=== PATIENT | male | born 1980 | race Caucasian/White ===

== ENCOUNTER → 2019-10-22 08:12 | Outpatient (BNVA) | payer MEDICAID, SELFPAY | PROVIDERS: PCP Nurse Practitioner Family; Referring Provider Nurse Practitioner Family; Visit Provider Specialist | DX: R51 Headache (principal); F17.210 Nicotine dependence, cigarettes, uncomplicated | CPT/HCPCS: 99203 ==

== ENCOUNTER → 2020-09-06 14:13 | Outpatient (BNVA) | payer MEDICAID, SELFPAY | PROVIDERS: PCP Nurse Practitioner Family; Visit Provider Specialist | DX: G43.711 Chronic migraine without aura, intractable, with status migrainosus (principal); G24.8 Other dystonia; R56.9 Unspecified convulsions; F31.9 Bipolar disorder, unspecified; F17.210 Nicotine dependence, cigarettes, uncomplicated | CPT/HCPCS: 99213; 99214 ==

== ENCOUNTER → 2020-10-19 14:52 | Outpatient (BNVA) | payer MEDICAID, SELFPAY | PROVIDERS: PCP Nurse Practitioner Family; Visit Provider Specialist | DX: R56.9 Unspecified convulsions (principal); F17.210 Nicotine dependence, cigarettes, uncomplicated | CPT/HCPCS: 95816 ==

== ENCOUNTER 2024-11-24 07:40 | Emergency (ER) | payer MEDICAID, SELFPAY ==
[2024-11-24 07:51] VITALS: BP 136/92; PULSE 76; RESP 16; TEMP 36.8; O2SAT 94; BMI 33.4
--- NOTE | 2024-11-24 07:54 | XRR_ITS ---
PROCEDURE INFORMATION: Exam: XR Left Forearm Exam date and time: 11/24/2024 7:56 AM Age: 44 years old Clinical indication: Injury or trauma; Fall; Blunt trauma (contusions or hematomas); Arm, lower; Left; Additional info: Pain, fall TECHNIQUE: Imaging protocol: Radiologic exam of the left forearm. Views: 2 views. COMPARISON: No relevant prior studies available. FINDINGS: Bones/joints: Normal. Soft tissues: Normal. XR/XR forearm LT 2V [id number] IMPRESSION: No acute findings.
--- NOTE | 2024-11-24 07:54 | XRR_ITS ---
PROCEDURE INFORMATION: Exam: XR Left Wrist Exam date and time: 11/24/2024 7:59 AM Age: 44 years old Clinical indication: Injury or trauma; Fall; Blunt trauma (contusions or hematomas); Wrist; Left; Additional info: Pain, fall TECHNIQUE: Imaging protocol: Radiologic exam of the left wrist. Views: 1 or 2 views. COMPARISON: CR XR forearm LT 2V [id number] 11/24/2024 7:56 AM FINDINGS: Bones/joints: No acute fracture or dislocation is noted. There is slight ulnar negative variance. Bony mineralization is normal. Soft tissues: Normal. XR/XR wrist LT 2V [id number] IMPRESSION: 1. No definite fracture identified.
--- NOTE | 2024-11-24 08:17 | W.ED.EXTPRO ---
HPI - Extremity Problem General: Chief complaint: Extremity Injury, Upper Stated complaint: Left arm injury Time Seen by Provider: 11/24/24 07:50 History of Present Illness: 44-year-old male presents emergency room with left arm pain. He was on a ladder he fell off a ladder got his arm caught between 2 rungs. He did not have any other injuries he complains of pain in his left thumb and his left wrist and forearm. He is able to use the hand without any difficulty no pain in the shoulder. Did not strike his head no neck discomfort Associated symptoms: Deny chest pain, fever(s) or rash Related Data Home Medications ?Medication ?Instructions ?Recorded ?Confirmed pantoprazole 40 mg tablet,delayed 40 mg PO DAILY 10/22/19 10/19/20 release aripiprazole 15 mg tablet (Abilify) 30 mg PO QDAY 10/19/20 Previous Rx's ?Medication ?Instructions ?Recorded sumatriptan succinate 100 mg tablet 100 mg PO Q2H PRN migraine 10/22/19 headache #9 tabs bupropion HCl 300 mg 24 hr tablet, 300 mg PO QAM #30 tabs 02/10/20 extended release (Wellbutrin XL) venlafaxine 150 mg 150 mg PO DAILY #30 caps 09/06/20 capsule,extended release 24 hr (Effexor XR) venlafaxine 75 mg capsule,extended 75 mg PO DAILY #7 caps 09/06/20 release 24 hr (Effexor XR) diclofenac sodium 75 mg 75 mg PO Q12H PRN pain #20 tabs 11/24/24 tablet,delayed release Allergies Allergy/AdvReac Type Severity Reaction Status Date / Time alprazolam (From Xanax) Allergy Unknown Verified 10/19/20 15:01 Review of Systems Const: Denies: fever(s) or chills Card: Denies: chest pain Resp: Denies: dyspnea GI: Denies: abdominal pain : Denies: dysuria, urinary frequency or urinary urgency Musc: Denies: neck pain or back pain Skin/Breast: Denies: rash PFSH ED PFSH: Medical History On high dose antipsychotic drug therapy Cannabis dependence, uncomplicated Other stimulant dependence, in remission Bipolar disorder, current episode hypomanic Nicotine dependence, cigarettes, uncomplicated Social History Smoking and tobacco/nicotine status: current every day tobacco/nicotine user cigarettes Packs smoked per day: 1 Physical Exam Const: COMMON NORMALS: no acute distress GENERAL APPEARANCE: cooperative and comfortable ORIENTATION/CONSCIOUSNESS: Yes awake, Yes oriented to person, Yes oriented to place and Yes oriented to time HENMT: COMMON NORMALS: normocephalic, atraumatic and hearing grossly normal bilaterally HEAD & SCALP: normocephalic and atraumatic Resp: COMMON NORMALS: normal respiratory effort, No retractions, No use of accessory muscles and clear to auscultation bilaterally AUSCULTATION: clear to auscultation bilaterally Cardio: COMMON NORMALS: regular rate, regular rhythm and No murmurs present (Cardio) RATE: regular rate RHYTHM: regular rhythm Extremity: OTHER: Examination left arm no obvious deformity some mild abrasions on the volar surface of the forearm. Range of motion of the elbow is without difficulty or crepitus. Mild wrist pain the patient reports pain with palpation and movement in the thumb neurovascularly intact. No pain at the anatomical snuffbox. Neuro: SENSORIUM/ORIENTATION: Yes oriented to person, Yes oriented to place and Yes oriented to time Skin: COMMON NORMALS: no rashes or lesions noted GENERAL SKIN EXAM: no rashes or lesions noted Course Vital Signs: Vital signs: Vital Signs Temperature 98.3 F 11/24/24 07:51 Pulse Rate 76 11/24/24 07:51 Respiratory Rate 16 11/24/24 07:51 Blood Pressure 136/92 11/24/24 07:51 Pulse Oximetry 94 11/24/24 07:51 Oxygen Delivery Me thod Room Air 11/24/24 07:51 MDM - Extremity (Nontraumatic) Medical Decision Making X-ray of the hand wrist and forearm on the left are unremarkable no bony fractures. Suspect soft tissue strain. He is already began to use the hand to hold a cup and manipulate objects without significant difficulty can follow-up with his primary care if has persistent symptoms give diclofenac to use as needed Medical Records I reviewed the patient's medical records. Lab Data I reviewed the patient's lab results. Radiology Impressions Forearm X-Ray 11/24/24 07:54 IMPRESSION: No acute findings. Wrist X-Ray 11/24/24 07:54 IMPRESSION: 1. No definite fracture identified. Hand X-Ray 11/24/24 08:35 IMPRESSION: 1. No definite fractures identified. 2. Soft tissue swelling. All radiology interpretation(s) finalized by discharge Discharge Plan Discharge Patient Disposition: Home Clinical Impression: Sprain and strain of wrist Condition: Stable Prescriptions: New diclofenac sodium 75 mg tablet,delayed release (DR/EC) 75 mg PO Q12H PRN (Reason: pain) Qty: 20 0RF Discontinued naproxen sodium 220 mg capsule 440 mg PO BID PRN No Action bupropion HCl [Wellbutrin XL] 300 mg tablet extended release 24 hr 300 mg PO QAM Qty: 30 2RF venlafaxine [Effexor XR] 75 mg capsule,extended release 24hr 75 mg PO DAILY Qty: 7 0RF Rx Instructions: Take 1 table daily for 7 days then stop. venlafaxine [Effexor XR] 150 mg capsule,extended release 24hr 150 mg PO DAILY Qty: 30 5RF Rx Instructions: Take 1 tablet daily pantoprazole 40 mg tablet,delayed release (DR/EC) 40 mg PO DAILY sumatriptan succinate 100 mg tablet 100 mg PO Q2H PRN (Reason: migraine headache) Qty: 9 3RF Rx Instructions: do not exceed 2 doses per 24 hrs aripiprazole [Abilify] 15 mg tablet 30 mg PO QDAY Discharge Orders: Discharge ED (Routine); Ordered 11/24/24 Ordered By: Charly Nieto Referrals: Sridevi Mares APRN [Primary Care Provider, Family Practice] Discharge Diet: Usual diet Discharge Activity: Increase activity as tolerated Patient Instructions: Opioid Safety, Pain Management Activity Restrictions/Additional Instructions: Thank you for choosing [facility] for your healthcare needs today. It is very important that you follow up as instructed or that you return to the Emergency Department should you have concerns or if your condition changes or worsens in any way. You were seen today after a fall. X-rays of your wrist hand and forearm did not show any acute fractures discomfort is likely from soft tissue. You can apply ice to the areas as needed use the medication prescribed 1 every 12 hours as needed if symptoms persist follow-up with your primary care doctor for further evaluations Print Language: Albanian Coding Level of Care Code ED Senior Project Coordinator for Tamar Jensen
--- NOTE | 2024-11-24 08:35 | XRR_ITS ---
PROCEDURE INFORMATION: Exam: XR Left Hand Exam date and time: 11/24/2024 8:36 AM Age: 44 years old Clinical indication: Injury or trauma; Fall; Blunt trauma (contusions or hematomas); Hand; Left TECHNIQUE: Imaging protocol: Radiologic exam of the left hand. Views: 3 or more views. COMPARISON: CR XR wrist LT 2V [id number] 11/24/2024 7:59 AM FINDINGS: Bones/joints: No acute fracture or dislocation is appreciated. There is very slight joint space narrowing with small osteophytes involving the 1st carpometacarpal joint as well as the articulation of the distal pole of the scaphoid with the trapezium. Joint spaces are otherwise relatively well preserved. There is slight ulnar negative variance. Bony mineralization is normal. Soft tissues: There is diffuse soft tissue swelling. No soft tissue air/gas is appreciated. XR/XR hand LT min 3V* [id number] IMPRESSION: 1. No definite fractures identified. 2. Soft tissue swelling.
[2024-11-24] MEDS: acetaminophen 500 mg Tablet 1000 MG PO (08:56)
[2024-11-24] MEDS: ketorolac 30 mg/mL INJ 60 MG IM (08:56)
[2024-11-24 09:01] VITALS: BP 131/82; PULSE 82; O2SAT 96
== END 2024-11-24 09:03 | disposition home or self-care (01) ==
PROVIDERS: Emergency Provider Family Medicine; PCP Nurse Practitioner Family
DX: S63.502A Unspecified sprain of left wrist, initial encounter (principal); W11.XXXA Fall on and from ladder, initial encounter; F17.210 Nicotine dependence, cigarettes, uncomplicated
CPT/HCPCS: 73090; 73100; 73130; 96372; 99284; J1885; J9999

== ENCOUNTER 2025-01-23 12:44 | Emergency (ER) | payer SELFPAY ==
--- OUTSIDE RECORDS SUMMARY | 2024-04-05 04:00 | XMS_ITS ---
Author Organization [facility] Address [address] [place] [address] Care Team Providers Care Tooling Supervisor Name Role Phone Migration, Provider Unavailable Unavailable REASON FOR VISIT EMR-Hans Encounters Encounter Location Date Provider Diagnosis Migrated_Facility 0 0 04/05/2024 Provider Migration Plan Of Treatment No Information Progress Notes * Mal CANSECOinDOB:[birth year] (44 yo M)Acc No.[id number]:04/05/2024 Patient: Anhsu MACEDO :1980 A ge:43 Y S ex:Male Address:[address] [place] [id number] Subjective: * Chief Complaints: * E MR-Hans * * Date:
--- OUTSIDE RECORDS SUMMARY | 2024-04-06 04:00 | XMS_ITS ---
Author Organization [facility] Address [address] [place] [address] Care Team Providers Care Rn Orthopaedics Name Role Phone Migration, Provider Unavailable Unavailable REASON FOR VISIT EMR-Hans Encounters Encounter Location Date Provider Diagnosis Migrated_Facility 0 0 04/06/2024 Provider Migration Plan Of Treatment No Information Progress Notes * Mal CANSECOinDOB:[birth year] (44 yo M)Acc No.[id number]:04/06/2024 Patient: Anshu MACEDO :1980 A ge:43 Y S ex:Male Address:[address] [place] [id number] Subjective: * Chief Complaints: * E MR-Hans * * Date:
--- OUTSIDE RECORDS SUMMARY | 2025-01-23 12:50 | XMS_ITS | Patient Health Record ---
Author Organization [facility] Address [address] [place] [address] Care Team Providers Care Traveling Sales Executive Name Role Phone Migration, Provider Unavailable Unavailable Reason For Referral No Information Encounters Encounter Location Date Provider Diagnosis Migrated_Facility 0 0 04/05/2024 Provider Migration Migrated_Facility 0 0 04/06/2024 Provider Migration Plan Of Treatment No Information Insurance Providers Payer Name Payer Address Payer Phone Subscriber Number Group Number Insured Name Patient Relationship to Insured Coverage Start Date Coverage End Date [place] Medicaid [address] [place] [phone] [id number] Anshu Jamison Self - patient is the insured
[2025-01-23 13:17] VITALS: PULSE 83; RESP 16; O2SAT 99
[2025-01-23 13:42] LABS: Hematocrit 57.1 % (37-53); Hemoglobin 19.00 g/dL (11.27-16.99); Mean Corpuscular HGB Conc 33.3 g/dL (30-55); Mean Corpuscular Hemoglobin 30.2 pg (27-33); Mean Corpuscular Volume 90.8 fl (82-101); Nucleated Red Blood Cells % 0 %; Platelet Count 407 10^3/cmm (157-399); Red Blood Count 6.29 10^6/uL (3.85-5.65); White Blood Count 14.28 10^3/uL (3.29-11.43)
--- NOTE | 2025-01-23 14:00 | PC.NURSE ---
upon triaging patient, he would not sit still, patient states he is in pain and is unable to sit still. BP would not take after multiple attempts due to him moving and patient declined any further BP readings. patient stormed out of triage prior to completing due to using the bathroom. when patient came back to finish triage, he would not sit still and temp would not result. patient appeared to be annoyed and increasingly loud.
--- NOTE | 2025-01-23 14:03 | W.ED.ABDPA2 ---
HPI - Abdominal Pain General: Chief Complaint: Abdominal Pain Stated Complaint: ABD PAIN Time Seen by Provider: 01/23/25 13:40 Source: patient Mode of arrival: ambulatory Limitations: no limitations History of Present Illness: 44-year-old male states he been having epigastric Salvador pain since this morning. States been a very sharp pain denies radiation has had nausea and vomiting as well rates his pain a 9 out of 10 denies any fevers denies any worse improving factors. Associated Symptoms: Reports nausea and vomiting; Denies chills, diarrhea, dysuria and fever(s) Related Data Home Medications ?Medication ?Instructions ?Recorded ?Confirmed pantoprazole 40 mg tablet,delayed 40 mg PO DAILY 10/22/19 01/23/25 release aripiprazole 15 mg tablet (Abilify) 30 mg PO QDAY 10/19/20 01/23/25 Previous Rx's ?Medication ?Instructions ?Recorded sumatriptan succinate 100 mg tablet 100 mg PO Q2H PRN migraine 10/22/19 headache #9 tabs bupropion HCl 300 mg 24 hr tablet, 300 mg PO QAM #30 tabs 02/10/20 extended release (Wellbutrin XL) venlafaxine 150 mg 150 mg PO DAILY #30 caps 09/06/20 capsule,extended release 24 hr (Effexor XR) venlafaxine 75 mg capsule,extended 75 mg PO DAILY #7 caps 09/06/20 release 24 hr (Effexor XR) diclofenac sodium 75 mg 75 mg PO Q12H PRN pain #20 tabs 11/24/24 tablet,delayed release Allergies Allergy/AdvReac Type Severity Reaction Status Date / Time alprazolam (From Xanax) Allergy Unknown Verified 10/19/20 15:01 Review of Systems Const: Denies: fever(s), chills, body aches or change in appetite ENMT: Denies: throat pain or dental pain Card: Denies: chest pain Resp: Denies: dyspnea GI: Reports: abdominal pain, nausea and vomiting; Denies: diarrhea : Denies: dysuria Musc: Denies: neck pain or back pain Skin/Breast: Denies: rash Neuro: Denies: headache(s) PFS ED PFSH: Medical History On high dose antipsychotic drug therapy Cannabis dependence, uncomplicated Other stimulant dependence, in remission Bipolar disorder, current episode hypomanic Nicotine dependence, cigarettes, uncomplicated Social History Smoking and tobacco/nicotine status: current every day tobacco/nicotine user cigarettes Packs smoked per day: 1 Physical Exam Const: COMMON NORMALS: no acute distress, patient oriented x3 and healthy appearing HENMT: COMMON NORMALS: normocephalic and atraumatic HEAD & SCALP: normocephalic and atraumatic Eye: COMMON NORMALS: conjunctivae normal CONJUNCTIVA: Yes conjunctivae normal Neck/C-Spine: COMMON NORMALS: full ROM and supple Chest: COMMONS NORMALS: normal inspection of the chest and normal palpation of entire chest wall Resp: COMMON NORMALS: normal respiratory effort, No retractions, No use of accessory muscles and clear to auscultation bilaterally AUSCULTATION: clear to auscultation bilaterally Cardio: COMMON NORMALS: regular rate, regular rhythm and No murmurs present (Cardio) RATE: regular rate RHYTHM: regular rhythm GI: COMMON NORMALS: Normal to inspection, nondistended, normoactive bowel sounds present, Soft to palpation and no masses PALPATION: Yes Soft to palpation OTHER: epigastric tenderness Extremity: COMMON NORMALS: normal to inspection and full ROM Neuro: COMMON NORMALS: patient oriented x3, moves all extremities and no focal motor deficits Psych: COMMON NORMALS: mental status grossly normal, Normal thought process present and cooperative THOUGHT PROCESS: Normal thought process present Skin: COMMON NORMALS: no rashes or lesions noted and no wounds GENERAL SKIN EXAM: no rashes or lesions noted Course Vital Signs: Vital signs: Vital Signs Pulse Rate 83 01/23/25 13:17 Respiratory Rate 16 01/23/25 13:17 Pulse Oximetry 99 01/23/25 13:17 Oxygen Delivery Me thod Room Air 01/23/25 13:17 MDM - Abdominal Pain Medical Decision Making Patient presents with abdominal pain he was upset when he came back because IV he had placed by ambulance it went bad and was having to have a new one he refused patient left and signed AMA he understood the risks of not getting a CT and finding out what was causing his abdominal pain Medical Records I reviewed the patient's medical records. Lab Data I reviewed the patient's lab results. 01/23/25 13:35 01/23/25 13:35 Labs/Radiology: Laboratory Results WBC 14.28 10^3/uL (3.29-11.43) H 01/23/25 13:35 RBC 6.29 10^6/uL (3.85-5.65) H 01/23/25 13:35 Hgb 19.00 g/dL (11.27-16.99) H 01/23/25 13:35 Hct 57.1 % (37-53) H 01/23/25 13:35 MCV 90.8 fl (82-101) 01/23/25 13:35 MCH 30.2 pg (27-33) 01/23/25 13:35 MCHC 33.3 g/dL (30-55) 01/23/25 13:35 RDW 12.8 % (12.1-15.1) 01/23/25 13:35 Plt Count 407 10^3/cmm (157-399) H 01/23/25 13:35 MPV 9.3 fL (7.4-10.4) 01/23/25 13:35 Neut % (Auto) 88.2 % 01/23/25 13:35 Lymph % (Auto) 5.3 % 01/23/25 13:35 [place] % (Auto) 3.9 % 01/23/25 13:35 Eos % (Auto) 2.1 % 01/23/25 13:35 Baso % (Auto) 0.1 % 01/23/25 13:35 Neut # (Auto) 12.61 10^3/uL (1.8-7.7) H 01/23/25 13:35 Lymph # (Auto) 0.8 10^3/uL (0.8-4.8) 01/23/25 13:35 [place] # (Auto) 0.6 10^3/uL (0.2-0.9) 01/23/25 13:35 Eos # (Auto) 0.3 10^3/uL (0.0-0.8) 01/23/25 13:35 Baso # (Auto) 0.0 10^3/uL (0.0-0.1) 01/23/25 13:35 Nucleated RBC % (auto) 0 % 01/23/25 13:35 Nucleated RBCs # 0.0 /100WBC 01/23/25 13:35 Sodium 135 mmol/L (136-145) L 01/23/25 13:35 Potassium 4.7 mmol/L (3.5-5.1) 01/23/25 13:35 Chloride 101 mmol/L (98-107) 01/23/25 13:35 Carbon Dioxide 17 mmol/L (22-29) L 01/23/25 13:35 Anion Gap 21.7 (5-19) H 01/23/25 13:35 BUN 15 mg/dL (6-20) 01/23/25 13:35 Creatinine 0.8 mg/dL (0.7-1.2) 01/23/25 13:35 GFR Calculation 106.0 mL/min (90-130) 01/23/25 13:35 Glucose 124 mg/dL (65-115) H 01/23/25 13:35 Calculated Osmolality 282 mOsm/kg (285-295) L 01/23/25 13:35 Calcium 9.7 mg/dL (8.5-10.5) 01/23/25 13:35 Total Bilirubin 0.5 mg/dL (0.15-1.2) 01/23/25 13:35 AST 17 U/L (0-40) 01/23/25 13:35 ALT 23 U/L (0-41) 01/23/25 13:35 Alkaline Phosphatase 142 U/L (40-130) H 01/23/25 13:35 Total Protein 8.5 g/dL (6.6-8.7) 01/23/25 13:35 Albumin 4.7 g/dL (3.5-5.2) 01/23/25 13:35 Globulin 3.8 g/dL (1.3-4.6) 01/23/25 13:35 Lipase 23 U/L (13-60) 01/23/25 13:35 No radiology studies performed this visit Discharge Plan Discharge Patient Disposition: Left Against Medical Advice Clinical Impression: Abdominal pain Condition: Stable Prescriptions: No Action bupropion HCl [Wellbutrin XL] 300 mg tablet extended release 24 hr 300 mg PO QAM Qty: 30 2RF venlafaxine [Effexor XR] 75 mg capsule,extended release 24hr 75 mg PO DAILY Qty: 7 0RF Rx Instructions: Take 1 table daily for 7 days then stop. venlafaxine [Effexor XR] 150 mg capsule,extended release 24hr 150 mg PO DAILY Qty: 30 5RF Rx Instructions: Take 1 tablet daily pantoprazole 40 mg tablet,delayed release (DR/EC) 40 mg PO DAILY sumatriptan succinate 100 mg tablet 100 mg PO Q2H PRN (Reason: migraine headache) Qty: 9 3RF Rx Instructions: do not exceed 2 doses per 24 hrs aripiprazole [Abilify] 15 mg tablet 30 mg PO QDAY diclofenac sodium 75 mg tablet,delayed release (DR/EC) 75 mg PO Q12H PRN (Reason: pain) Qty: 20 0RF Referrals: Sridevi Mares APRN [Primary Care Provider, Family Practice] Patient Instructions: Abdominal Pain (ED) Print Language: Kazakh Coding Level of Care Code ED Slitter And Rewinder for Tamar Jensen
[2025-01-23 14:06] LABS: Alanine Aminotransferase 23 U/L (0-41); Albumin Level 4.7 g/dL (3.5-5.2); Alkaline Phosphatase 142 U/L (40-130); Anion Gap 21.7 (5-19); Aspartate Amino Transferase 17 U/L (0-40); Blood Urea Nitrogen 15 mg/dL (6-20); Calcium 9.7 mg/dL (8.5-10.5); Carbon Dioxide 17 mmol/L (22-29); Chloride 101 mmol/L (98-107); Globulin 3.8 g/dL (1.3-4.6); Glucose 124 mg/dL (65-115); Lipase 23 U/L (13-60); Osmolality Calculated 282 mOsm/kg (285-295); Potassium 4.7 mmol/L (3.5-5.1); Sodium 135 mmol/L (136-145); Total Protein 8.5 g/dL (6.6-8.7)
--- NOTE | 2025-01-23 14:29 | PC.PHAR ---
[facility] pt never picked up most recent rx for Diclofenac sod. 75mg bid 11/24/24. All other medications last filled at [facility] in [place]-last fill dates are over a year old.
[2025-01-23 14:30] VITALS: BP 120/90; PULSE 103; RESP 33; O2SAT 100
== END 2025-01-23 14:30 | disposition left against medical advice (07) ==
PROVIDERS: Emergency Provider Emergency Medicine; PCP Nurse Practitioner Family
DX: R10.13 Epigastric pain (principal); F17.210 Nicotine dependence, cigarettes, uncomplicated
CPT/HCPCS: 36415; 80053; 83690; 85025; 99283